=== PATIENT | male | born 1990 | race Hispanic/Latino ===

== ENCOUNTER 2020-04-18 12:43 | Emergency (ER) | payer SELFPAY ==
[2020-04-18] MEDS ORDERED: KETOROLAC TROMETHAMINE 60 MG/2 ML VIAL ONE (13:21)
[2020-04-18] MEDS ORDERED: MORPHINE SULFATE 4 MG/1ML SYG ONE (13:21)
[2020-04-18] MEDS ORDERED: CYCLOBENZAPRINE HCL 10 MG TABLET ONE (13:30)
== END 2020-04-18 16:05 | disposition home or self-care (01) ==
LOC: EDH 12:43
DX: M54.42 Lumbago with sciatica, left side (principal); M54.16 Radiculopathy, lumbar region; E11.9 Type 2 diabetes mellitus without complications
CPT/HCPCS: 72100; 96372 ×2; 99284; J1885; J2270